=== PATIENT | male | born 1985 | race African-American/Black ===

== ENCOUNTER 2017-10-31 17:28 | Emergency (ER) | payer OTHER ==
[2017-10-31] MEDS ORDERED: KETOROLAC 30 MG/1 ML SDV IVP ONE (17:38)
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
[2017-10-31 18:59] VITALS: BP 120/80
== END 2017-10-31 18:57 | disposition home or self-care (01) ==
DX: S70.02XA Contusion of left hip, initial encounter (principal); V13.4XXA Pedal cycle driver injured in collision with car, pick-up truck or van in traffic accident, initial encounter; Y92.410 Unspecified street and highway as the place of occurrence of the external cause; Y93.55 Activity, bike riding
CPT/HCPCS: 96374; J1885